=== PATIENT | female | born 1985 | race Caucasian/White ===

== ENCOUNTER 2018-11-24 06:21 | Day surgery (SDC) | payer OTHER ==
[~2018-11-24 06:21] MED LIST: CEFAZOLIN (20 MG/ML) IV SYG IV*; CEFAZOLIN 2 GM/50 ML (PMX) 50 ML IVPB; LACTATED RINGER'S 1,000 ML IV; LIDOCAINE 4% CR TOP
[2018-11-24] MEDS ORDERED: LIDOCAINE 2% (SDV) 5 ML INJ (07:00)
[2018-11-24] MEDS ORDERED: POLYMYXIN/BACITRACIN 1L IRRIG (07:07)
[2018-11-24] MEDS ORDERED: ROPIVACAINE 0.5 % 30 ML VIAL (07:15)
[2018-11-24] MEDS ORDERED: MIDAZOLAM 1 MG/ML 2 ML INJ (07:19)
[2018-11-24] MEDS ORDERED: FENTAnyl 50 MCG/ML VIAL ×2 (07:19→08:14)
[2018-11-24] MEDS ORDERED: ROPIVACAINE 0.2% 20 ML VIAL (07:23)
[2018-11-24] MEDS ORDERED: CEFAZOLIN 1 GM INJ (08:04)
[2018-11-24] MEDS ORDERED: FAMOTIDINE 20 MG INJ (08:08)
[2018-11-24] MEDS ORDERED: ONDANSETRON 4 MG INJ (08:08)
[2018-11-24] MEDS ORDERED: DEXAMETHASONE 4 MG/ML 5 ML INJ (08:08)
[2018-11-24] MEDS ORDERED: PROPOFOL 20 ML (09:46)
[2018-11-24] MEDS ORDERED: KETOROLAC 30 MG INJ IV (10:00)
[2018-11-24] MEDS ORDERED: HYDROmorphONE 1 MG/5 ML IV SYRINGE IV ×2 (10:00)
[2018-11-24] MEDS ORDERED: ONDANSETRON 4 MG INJ IV (10:00)
[2018-11-24] MEDS ORDERED: FENTAnyl 50 MCG/ML VIAL IV (10:00)
[2018-11-24] MEDS: MEPERIDINE 25 MG INJ IV (10:07)
[2018-11-24] MEDS: OXYCODONE/ACETAMINOPHEN (5/325) TAB PO (11:36)
== END 2018-11-24 12:18 | disposition home or self-care (01) ==
LOC: SDS 06:21
DX: S82.841D Displaced bimalleolar fracture of right lower leg, subsequent encounter for closed fracture with routine healing (principal); X58.XXXD Exposure to other specified factors, subsequent encounter; J45.909 Unspecified asthma, uncomplicated
CPT/HCPCS: 27814; 73610-RT; 84703